=== PATIENT | female | born 1980 | race Asian ===

== ENCOUNTER 2021-03-08 15:45 | Outpatient (REF) | payer OTHER, MEDICAID, SELFPAY ==
--- NOTE | ~2021-03-08 | XR_ITS ---
EXAMINATION: XR ANKLE, RIGHT CLINICAL INFORMATION: Trauma, pain COMPARISON: None TECHNIQUE: AP, lateral, and mortise views of the right ankle. FINDINGS: There is no fracture or dislocation or destructive process. The malleoli are intact and the ankle mortise is symmetric. The talar dome shows no osteochondral lesion. There is no visible ankle capsular effusion. The subtalar joint is unremarkable. There is moderate posterior and borderline plantar calcaneal spurs. XR/XR ankle RT min 3V IMPRESSION: No fracture, dislocation, or visible ankle capsular effusion.
--- NOTE | ~2021-03-08 | XR_ITS ---
EXAMINATION: XR KNEE, RIGHT CLINICAL INFORMATION: Fall with pain COMPARISON: None TECHNIQUE: Four views of the right knee. FINDINGS: Bones and soft tissues are normal aside from the presence of a small joint effusion. No fractures are seen. Alignment is anatomic. Joint spaces are well maintained. No abnormal soft tissue calcification. XR/XR knee RT 4V IMPRESSION: Small knee joint effusion. No evidence of a traumatic injury
== END 2021-03-08 15:46 | disposition home or self-care (01) ==
LOC: HO.HMGCX 15:45
PROVIDERS: Visit Provider Nurse Practitioner Family
DX: S99.911A Unspecified injury of right ankle, initial encounter (principal); S89.91XA Unspecified injury of right lower leg, initial encounter; W19.XXXA Unspecified fall, initial encounter
CPT/HCPCS: 73564; 73610

== ENCOUNTER 2021-09-03 19:38 | Emergency (ER) | payer OTHER, MEDICAID, SELFPAY ==
[2021-09-03 19:52] VITALS: BP 143/94; PULSE 85; RESP 16; TEMP 36.6; O2SAT 99; BMI 26.5
--- NOTE | 2021-09-03 21:24 | ED_ITS ---
HPI - General Adult General Chief complaint: General Medical Stated complaint: earring ripped ear Time Seen by Provider: 09/03/21 21:24 Source: patient Mode of arrival: ambulatory Limitations: no limitations History of Present Illness HPI narrative: 41-year-old female came in for evaluation 5 left ear laceration. Patient was playing with her dog, dog's paw got hooked into the loop earring causing ripping of the left ear lobe. Dog is up to date vaccinated, duct did not cause the laceration but pulling of the earring would cause the laceration. Related Data Allergies Allergy/AdvReac Type Severity Reaction Status Date / Time No Known Allergies Allergy Unverified 05/13/20 18:32 [No Known Allergies*] Review of Systems Review of Systems: All other systems are reviewed and are negative Constitutional: Reports as per HPI and Reports no additional constitutional complaints Eyes: Reports as per HPI and Reports no additional eye complaints Reports system reviewed and no additional complaints, except as documented Cardiovascular: Reports as per HPI and Reports no additional cardiovascular complaints Respiratory: Reports as per HPI and Reports no additional respiratory complaints Gastrointestinal: Reports as per HPI and Reports no additional gastrointestinal complaints Genitourinary: Reports no additional female genitourinary complaints Musculoskeletal: Reports no additional musculoskeletal complaints Skin/Breast: Reports system reviewed and no additional complaints, except as docu Psychiatric: Reports no additional psychiatric complaints Endocrine: Reports no additional endocrine complaints Hematologic/Lymphatic: Reports no additional hematologic/lymphatic complaints Allergic/Immunologic: Reports no additional allergic/immunologic complaints Reports system reviewed and no additional complaints, except as documented and Reports Abnormal speech present [facility] Social History Social History Advance Directives: No Advance Directives Information Provided: No Patient : No Physical Exam Vital Signs: Vital Signs: Last Vital Signs Temp 97.9 F 09/03/21 19:52 Pulse 85 09/03/21 19:52 Resp 16 09/03/21 19:52 BP 143/94 H 09/03/21 19:52 Pulse Ox 99 09/03/21 19:52 BMI result Body Mass Index 26.5 Vital signs have been reviewed as appeared to be correct. Blood pressure normal. Heart rate normal. Respiration rate normal. Temperature normal. Oxygen saturation normal. Appearance: Alert. Oriented X3. No acute distress. Head: Normal external exam. Normocephalic. Atraumatic. No [place] signs noted. No raccoon eyes noted Eyes: PERRLA. EOMI. Conjunctiva and sclera normal. Eyelids normal. ENT: Left ear lobe with 1 cm laceration no active bleeding, affecting the soft part of the lobe. Neck: Normal inspection. Neck supple. FROM. No adenopathy. Thyroid Normal. No meningeal signs. No neck mass noted. CVS: Normal heart rate and rhythm. Heart sound normal. No murmurs noted. Pulses normal throughout. Respiratory: No respiratory distress. Painless inspiration. Breath sounds normal. No wheezes/rales/rhonchi noted. Chest nontender. No accessory muscle usage noted or decreased air movement noted. Abdomen: Soft and nontender. Bowel sounds normal in all 4 quadrants. No distention noted. No organomegaly noted. No visible injury noted. Back: No CVA tenderness. Full range of motion noted. Skin: Skin warm and dry. Normal skin color. Normal skin turgor. No rashes/lesions/lacerations noted. Extremities: No lower extremity edema. Extremities exhibit normal range of motion. Extremities nontender. Neuro: Oriented X 3. Cranial nerve exam: II-XII are grossly intact No motor deficit. No sensory deficit. Reflexes normal. Course Course Course Narrative: Assessment and plan. Left earlobe laceration that repaired with Dermabond, no indication for antibiotic or rabies. Procedures Laceration Laceration 1: Site: other (Left earlobe) Size (cm): 1 Description: linear Depth: simple, single layer Size (cm): other (Dermabond ) Discharge Plan Discharge Clinical Impression: Ear lobe laceration Qualifiers: Encounter type: initial encounter Laterality: left Qualified Code(s): S01.312A - Laceration without foreign body of left ear, initial encounter Patient Disposition: Home, Self-Care Instructions: Laceration (ED) Referrals: Physician,Unknown J [Primary Care Provider] - 2 days
== END 2021-09-03 21:52 | disposition home or self-care (01) ==
PROVIDERS: Emergency Provider Emergency Medicine
DX: S01.312A Laceration without foreign body of left ear, initial encounter (principal); W49.04XA Ring or other jewelry causing external constriction, initial encounter; Y93.89 Activity, other specified; Y92.019 Unspecified place in single-family (private) house as the place of occurrence of the external cause; Y99.9 Unspecified external cause status
CPT/HCPCS: 12011; 99283